=== PATIENT | male | born 1980 | race Caucasian/White ===

== ENCOUNTER 2018-03-05 15:08 | Emergency (ER) | payer SELFPAY ==
[2018-03-05] MEDS ORDERED: Aspirin 81 mg CHEW TAB* 81 MG TAB.CHEW PO ONE (15:26)
[2018-03-05] MEDS ORDERED: Aspirin 81 mg CHEW TAB* 81 MG TAB.CHEW ONE (15:28)
--- NOTE | 2018-03-05 15:34 | ED ---
HPI Chest Pain - HPI Summary HPI Summary: 37 yr old male with the complaint of pain in chest, left side, radiates into left arm, pressure like, associated with SOB. No palpitations, no dizziness. He has a family history of CAD. Onset of pain 10 pm last night. It has worsened and is presently 12/12. - History of Current Complaint Chief Complaint: UCChestPain Time Seen by Provider: 03/05/18 15:18 Pain Intensity: 8 - Allergy/Home Medications Allergies/Adverse Reactions: Allergies Allergy/AdvReac Type Severity Reaction Status Date / Time No Known Allergies Allergy Verified 03/05/18 15:22 Home Medications: Home Medications D-Methorphan/PE/Acetaminophen [Vicks Dayquil Cold & Flu] 1 - 2 cap PO Q6H PRN [History Confirmed 03/05/18] PMH/Surg Hx/FS Hx/Imm Hx Infectious Disease History: No Infectious Disease History: Denies: Traveled Outside the [place] in Last 30 Days - Family History Known Family History: Positive: None - Social History Occupation: Employed Full-time Alcohol Use: None Substance Use Type: Reports: None Smoking Status (MU): Never Smoked Tobacco Review of Systems Constitutional: Negative Positive: Chest Pain All Other Systems Reviewed And Are Negative: Yes Physical Exam Triage Information Reviewed: Yes Vital Signs On Initial Exam: Initial Vitals Temp Pulse Resp BP Pulse Ox 98.1 F 76 16 126/73 98 03/05/18 15:23 03/05/18 15:23 03/05/18 15:23 03/05/18 15:23 03/05/18 15:23 Vital Signs Reviewed: Yes Appearance: Positive: Well-Appearing, No Pain Distress Skin: Positive: Warm, Skin Color Reflects Adequate Perfusion Head/Face: Positive: Normal Head/Face Inspection Eyes: Positive: EOMI ENT: Positive: Normal ENT inspection Neck: Positive: Nontender Respiratory/Lung Sounds: Positive: Clear to Auscultation, Breath Sounds Present Cardiovascular: Positive: RRR. Negative: Murmur Abdomen Description: Positive: Nontender Musculoskeletal: Positive: Strength/ROM Intact. Negative: Edema Left, Edema Right Neurological: Positive: Sensory/Motor Intact, Alert, Oriented to Person Place, Time, CN Intact II-III, Normal Gait, Speech Normal Psychiatric: Positive: Normal - Aida Coma Scale Best Eye Response: 4 - Spontaneous Best Motor Response: 6 - Obeys Commands Best Verbal Response: 5 - Oriented Coma Scale Total: 15 Diagnostics - Vital Signs Vital Signs Temp Pulse Resp BP Pulse Ox 03/05/18 15:23 98.1 F 76 16 126/73 98 - Laboratory Lab Statement: Any lab studies that have been ordered have been reviewed, and results considered in the medical decision making process. - EKG 03/05/18 Cardiac Rate: NL EKG Rhythm: Sinus Rhythm ST Segment: Normal Ectopy: None Chest Pain Course/Dx - Course Course Of Treatment: 37 yr old male with chest pain. To [facility] for further eval. MANJIT Allen [employer] at [facility] in [place], and they are expecting the patient. - Diagnoses Provider Diagnoses: Chest pain Discharge - Sign-Out/Discharge Documenting (check all that apply): Patient Departure All imaging exams completed and their final reports reviewed: No Studies - Discharge Plan Condition: Good Disposition: TRANS HIGHER LVL OF CARE FAC - Billing Disposition and Condition Condition: GOOD Disposition: Trans Higher Lvl of Care Fac
[2018-03-05 15:40] VITALS: BP 130/68
== END 2018-03-05 15:40 | disposition short-term general hospital (02) ==
LOC: UCCORT 15:08
DX: R07.9 Chest pain, unspecified (principal)
CPT/HCPCS: 93005; 99203; A9270-GY; G0463